=== PATIENT | female | born 1945 | race African-American/Black ===

== ENCOUNTER 2020-11-01 09:29 | Outpatient (REF) | payer MEDICARE, OTHER, SELFPAY ==
--- NOTE | 2020-11-01 10:17 | MHC.AU.AHA ---
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 Ms. 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 She has a mild hearing loss in the right ear. Ms. Delatorre uses a hearing aid in the left ear only. She notes that the hearing aid recently stopped working. She notes that her hearing seems to gradually be decreasing as well. She denies any significant changes to her medical history since her last visit. Previous Hearing Test Results: [facility] [place]17 - Normal to mild sensorineural hearing loss in the right ear. Normal steeply sloping to profound sensorineural hearing loss in the left ear with no speech discrimination abilities. Ear History: Bothersome Tinnitus/Ringing/Noises in Ears: Left Ear Medical History: Medical History: Seasonal allergies Hearing Instrument History- Left Ear: Health Club Manager: Melodigram Model: Keldeal [id number]-SP Serial Number: [id number] Battery Size: 13 Warranty: Loss and Damage Warranty: Dispensed By: [facility] Date of Fittin04/26/2012 Otoscopy: Right Ear: Unremarkable Left Ear: Unremarkable Tympanometry: Tympanometry performed due to: To assess integrity of the middle ear system Right Ear: Hypercompliant Middle Ear System (Type Ad) Left Ear: Normal Middle Ear System (Type A) Hearing Evaluation: Transducer(s) Used: Insert Earphones, Bone Conduction Method: Conventional Audiometry Stimuli Used: Pure Tones Right Ear: Description of Hearing: Normal hearing from 250-500 Hz, sloping to a mild sensorineural hearing loss from 750-4000 Hz, and rising to normal hearing from 3681-3064 Hz. Left Ear: Description of Hearing: Normal hearing at 250 Hz, steeply sloping to a moderate sensorineural hearing loss at 500 Hz, moderately severe sensorineural hearing loss at 750 Hz, severe sensorineural hearing loss at 1000 Hz, and a profound sensorineural hearing loss from 9436-9271 Hz. Speech Recognition Threshold (SRT): Method Used: Monitored Live Voice Stimuli Used: Spondee Words Right Ear: 25 dBHL Left Ear: 80 dBHL with effective masking Word Discrimination: Method: Recorded Lists Word Lists Used: NU-6 Right Ear: 100% at 65 dBHL Left Ear: 0/10 at 85 dBHL, 90 dBHL, and 95 dBHL with masking. Attempted at 100 dBHL but patient reported it was uncomfortably loud. Comparison: Compared to most recent evaluation: Thresholds have slightly worsened in the right ear. Thresholds are stable in the left ear. Recommendations: Audiological re-evaluation in one year. Hearing aid maintenance performed and aid was returned to good working condition. Given the age of Ms. Delatorre's current hearing aid, it is recommended that she consider updated amplification. She would be a good candidate for a CROS hearing aid system. Discussed CROS aids vs a standard hearing aid for the left ear. Gave Ms. Delatorre some literature to consider her options. She is going to contact the [employer] to see if she qualifies for new hearing aids through them. She was advised to return for a hearing aid evaluation should she qualify or if she would like to pursue the hearing aids on her own. Diagnosis: Primary Diagnosis: H90.3 Bilateral Sensorineural Hearing Loss Services Performed: Comprehensive Audiological Evaluation (CPT 85100) Tympanometry (CPT 79266) Signature: Provider: dEgar Webb, CCC-A
== END 2020-11-01 09:30 | disposition home or self-care (01) ==
LOC: HO.SH 09:29
PROVIDERS: Visit Provider Internal Medicine Nephrology
DX: H90.3 Sensorineural hearing loss, bilateral (principal)
CPT/HCPCS: 92557; 92567

== ENCOUNTER 2022-03-08 09:24 | Outpatient (REF) | payer MEDICARE, SELFPAY ==
--- NOTE | 2022-03-08 14:15 | MHC.AU.HFU ---
Hearing Instrument Follow-Up- Binaural Date of Visit: 03/08/22 Right Ear: Blueak Audeo [id number] SN: [id number] Color: Black Repair Warranty: 05/04/2024 Loss and Damage Warranty: 05/04/2024 Battery Size: 13 Power Generating Plant Operator: Size 1 M Type of Mold: Small open dome Type of Wax Guard: Cerushield Dispensed By: [facility] Date of Fittin03/02/2021 Left Ear: Phonak CROS P-13 SN: [id number] Color: Black Repair Warranty: 05/04/2024 Loss and Damage Warranty: 05/04/2024 Battery Size: 13 Power Generating Plant Operator: Size 1 Cros wire Type of Mold: Small open dome Type of Wax Guard: Cerushield Dispensed By: [facility] Date of Fittin03/02/2021 Follow-Up Summary: Margie returned for routine hearing aid maintenance. She reported that overall the CROS system is working well. 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 Her hearing aids were cleaned, microphones vacuumed, and domes, wax guards, and retention tails replaced. A listening check demonstrated the hearing aids are in good working order. Recommendations: Hearing instrument maintenance in 6 months, or sooner if needed. Please contact our clinic with any questions or concerns. Diagnosis Code(s): Primary Diagnosis: H90.3 Bilateral Sensorineural Hearing Loss Secondary Diagnosis: H93.12 Tinnitus, Left Ear Signature: Provider: Jyotsna Nails, [facility]
== END 2022-03-08 09:25 | disposition home or self-care (01) ==
LOC: HO.SH 09:24
PROVIDERS: Visit Provider Internal Medicine
DX: Z01.118 Encounter for examination of ears and hearing with other abnormal findings (principal); H90.3 Sensorineural hearing loss, bilateral; H93.12 Tinnitus, left ear
CPT/HCPCS: 92557